=== PATIENT | female | born 1935 | race Caucasian/White ===

== ENCOUNTER 2020-06-20 23:03 | Inpatient (IN) ==
[2020-06-21] MEDS ORDERED: METOPROLOL TARTRATE 5 MG/5 ML VIAL IV STA (03:21)
[2020-06-21] MEDS ORDERED: GLUCAGON 1 MG VIAL IM PRN ×2 (03:21→11:21)
[2020-06-21] MEDS ORDERED: DEXTROSE 50% 25 GM/50 ML VIAL IV PRN ×2 (03:21→11:21)
[2020-06-21] MEDS ORDERED: ONDANSETRON 4 MG/2 ML VIAL IV PRN ×2 (03:21→12:07)
[2020-06-21] MEDS ORDERED: hydrALAZINE 20 MG/1 ML VIAL IV PRN (03:21)
[2020-06-21] MEDS ORDERED: ACETAMINOPHEN 325 MG TABLET PO PRN (03:21)
[2020-06-21] MEDS ORDERED: MORPHINE 4 MG/1 ML VIAL IV PRN ×2 (03:21→11:21)
[2020-06-21] MEDS: SODIUM CHLORIDE 0.9% 1,000 ML IV SCH ×2 (03:56→16:55)
[2020-06-21] MEDS ORDERED: DILTIAZEM 50 MG/10 ML VIAL IV STA (08:05)
[2020-06-21] MEDS ORDERED: DILTIAZEM 25 MG/5 ML VIAL IV ONE (08:06)
[2020-06-21 08:47] LABS: Basophils % 0.3 % (0.0-0.8); Eosinophils % 0.1 % (0.00-10.9); Hematocrit 23.8 VOL% (35.7-47.0); Hemoglobin 7.8 GM/DL (12.0-16.0); Immature Granulocytes % 0.6 %; Immature Granulocytes Absolute 0.06 #; Lymphocytes # 2.4 10*3/uL (1.4-4.0); Lymphocytes % 23.1 % (21.3-54.2); Mean Corpuscular HGB Conc 32.8 GM/DL (32-36); Mean Corpuscular Volume 97.5 FL (87-102); Mean Platelet Volume 9.4 FL (9.6-12.0); Monocytes % 13.8 % (1.7-12.7); Neutrophils % 62.1 % (38.7-73.9); Platelet Count 208 T/CUMM (130-400); Red Blood Count 2.44 MC/CUMM (3.8-5.5); Red Cell Distribution Width 13.2 % (9.3-17.3); White Blood Count 10.3 T/CUMM (4-12)
[2020-06-21 08:56] LABS: INR 1.1; PT Patient Result 11.6 SECS (9.8-11.9)
[2020-06-21 09:10] LABS: Albumin 3.3 G/DL (3.4-5.0); Bilirubin,Total 0.6 MG/DL (0.2-1.0); Calcium 8.8 MG/DL (8.5-10.1); Osmolality,Calculated 285.2 MOS/KG (273-304); Total Protein 6.4 G/DL (6.4-8.3)
[2020-06-21] MEDS ORDERED: SODIUM CHLORIDE 0.9% 1,000 ML IV PRN (09:18)
[2020-06-21] MEDS ORDERED: ceFAZolin 1,000 MG VIAL ONE (10:02)
[2020-06-21] MEDS ORDERED: ceFAZolin 2,000 MG in PREMIX 1 EACH IV ONE (11:00)
[2020-06-21] MEDS ORDERED: BISACODYL 10 MG SUPP RECTAL PRN (11:14)
[2020-06-21] MEDS ORDERED: PROMETHAZINE 25 MG/1 ML VIAL IM PRN (11:14)
[2020-06-21] MEDS ORDERED: LACTULOSE 20 GM/30 ML UDCUP PO PRN (11:14)
[2020-06-21] MEDS ORDERED: diphenhydrAMINE CAP 25 MG CAPSULE PO PRN (11:14)
[2020-06-21] MEDS ORDERED: MAGNESIUM HYDROXIDE SUSP 30 ML UDCUP PO PRN (11:14)
[2020-06-21] MEDS ORDERED: PHENYLEPHRINE 1 MG/10 ML SYRINGE IV ONE (11:37)
[2020-06-21] MEDS ORDERED: ACETAMINOPHEN 1,000 MG/100 ML VIAL IV ONE (11:37)
[2020-06-21] MEDS ORDERED: LIDOCAINE 2% 5 ML VIAL ONE (11:37)
[2020-06-21] MEDS ORDERED: PHENYLEPHRINE DRIP 20 MG/250 ML PREMIX IV ONE (11:37)
[2020-06-21] MEDS ORDERED: SEVOFLURANE 1 UNIT/15 MINUTE INH ONE (11:37)
[2020-06-21] MEDS ORDERED: ONDANSETRON 4 MG/2 ML VIAL ONE (11:37)
[2020-06-21] MEDS ORDERED: ETOMIDATE 40 MG/20 ML VIAL IV ONE (11:37)
[2020-06-21] MEDS ORDERED: GLYCOPYRROLATE 0.4 MG/2 ML VIAL ONE (11:37)
[2020-06-21] MEDS ORDERED: fentaNYL 100 MCG/2 ML VIAL ONE (11:37)
[2020-06-21] MEDS ORDERED: ROCURONIUM 100 MG/10 ML VIAL IV ONE (11:38)
[2020-06-21] MEDS ORDERED: SODIUM CHLORIDE 0.9% 2,000 ML IV ONE (11:38)
[2020-06-21] MEDS ORDERED: NEOSTIGMINE 10 MG/10 ML VIAL ONE (11:38)
[2020-06-21] MEDS ORDERED: MEPERIDINE 25 MG/1 ML VIAL ONE (12:04)
[2020-06-21] MEDS: MEPERIDINE 25 MG/1 ML VIAL IV PRN ×2 (12:05→13:55)
[2020-06-21] MEDS ORDERED: DILTIAZEM 50 MG/10 ML VIAL IV ONE (13:45)
[2020-06-21] MEDS: dilTIAZem INJ 125 MG in SODIUM CHLORIDE 0.9% 125 MG/100 ML BAG IV SCH (14:00)
[2020-06-21] MEDS ORDERED: SODIUM CHLORIDE 0.9% 500 ML IV ONE (14:05)
[2020-06-21] MEDS ORDERED: DIGOXIN 0.5 MG/2 ML AMP IV ONE (14:26)
[2020-06-21 15:20] LABS: Hematocrit 27.4 VOL% (35.7-47.0)
[2020-06-21] MEDS: METOPROLOL TARTRATE 25 MG TABLET PO SCH ×2 (16:34→21:10)
[2020-06-21] MEDS: INSULIN REGULAR 100 UNIT/ML SUBCUT SCH ×3 (16:34→21:10)
[2020-06-21] MEDS: FERROUS SULFATE 325 MG TABLET PO SCH (16:55)
[2020-06-21] MEDS: GABAPENTIN 300 MG CAPSULE PO SCH ×2 (16:55→21:11)
[2020-06-21] MEDS: ceFAZolin 1,000 MG in SYRINGE 1 EACH IV SCH (16:59)
[2020-06-21] MEDS: glipiZIDE 5 MG TABLET PO SCH (17:05)
[2020-06-21] MEDS: RANOLAZINE 500 MG TABLET PO SCH (21:10)
[2020-06-21] MEDS: APIXABAN 2.5 MG TABLET PO SCH (21:10)
[2020-06-21] MEDS: TICAGRELOR 90 MG TABLET PO SCH (21:11)
[2020-06-21] MEDS: ATORVASTATIN 40 MG TABLET PO SCH (21:11)
[2020-06-21] MEDS: DIPHENHYDRAMINE ACETAMINOPHEN PO SCH (21:37)
[2020-06-22] MEDS: ceFAZolin 1,000 MG in SYRINGE 1 EACH IV SCH ×2 (00:30→10:07)
[2020-06-22] MEDS: SODIUM CHLORIDE 0.9% 1,000 ML IV SCH ×3 (05:23→17:37)
[2020-06-22 06:04] LABS: Calcium 7.8 MG/DL (8.5-10.1); Osmolality,Calculated 286.4 MOS/KG (273-304)
[2020-06-22] MEDS ORDERED: MAGNESIUM SULF RIDER 2 GM in PREMIX 1 EACH IV ONE ×2 (06:26→09:05)
[2020-06-22] MEDS ORDERED: PANTOPRAZOLE 20 MG TABLET PO SCH (07:00)
[2020-06-22 07:40] LABS: Basophils % 0.2 % (0.0-0.8); Eosinophils % 0.1 % (0.00-10.9); Hematocrit 21.9 VOL% (35.7-47.0); Immature Granulocytes % 0.6 %; Immature Granulocytes Absolute 0.07 #; Mean Corpuscular HGB Conc 32.4 GM/DL (32-36); NRBC # 0.04 10*3/uL; Neutrophils % 70.1 % (38.7-73.9); Red Blood Count 2.38 MC/CUMM (3.8-5.5); Red Cell Distribution Width 21.6 % (9.3-17.3); White Blood Count 12.6 T/CUMM (4-12)
[2020-06-22 07:41] LABS: Hemoglobin 7.1 GM/DL (12.0-16.0); Platelet Count 161 T/CUMM (130-400)
[2020-06-22 07:51] LABS: Microcytosis 1+
[2020-06-22 07:52] LABS: Anisocytosis 1+; Ovalocytes Slight; Platelet Estimate Adequate
[2020-06-22] MEDS ORDERED: SODIUM CHLORIDE 0.9% 1,000 ML IV PRN (08:27)
[2020-06-22] MEDS ORDERED: ASPIRIN EC 81 MG TABLET PO SCH (09:00)
[2020-06-22] MEDS ORDERED: LOSARTAN 50 MG TABLET PO SCH (09:00)
[2020-06-22] MEDS: GABAPENTIN 300 MG CAPSULE PO SCH ×3 (09:53→21:58)
[2020-06-22] MEDS: RANOLAZINE 500 MG TABLET PO SCH ×2 (09:53→21:58)
[2020-06-22] MEDS: OXYBUTYNIN XL 10 MG TABLET PO SCH (09:53)
[2020-06-22] MEDS: glipiZIDE 5 MG TABLET PO SCH ×2 (09:53→17:34)
[2020-06-22] MEDS: MULTIVITAMIN (CENTRUM) TABLET PO SCH (09:53)
[2020-06-22] MEDS: METOPROLOL TARTRATE 25 MG TABLET PO SCH ×2 (09:54→21:58)
[2020-06-22] MEDS: MAGNESIUM OXIDE 400 MG TABLET PO SCH (09:54)
[2020-06-22] MEDS: CETIRIZINE 10 MG TABLET PO SCH (09:55)
[2020-06-22] MEDS: FERROUS SULFATE 325 MG TABLET PO SCH ×2 (09:55→17:34)
[2020-06-22] MEDS: INSULIN REGULAR 100 UNIT/ML SUBCUT SCH ×4 (09:57→21:58)
[2020-06-22] MEDS: ASPIRIN EC 81 MG TABLET PO SCH (10:06)
[2020-06-22] MEDS: APIXABAN 2.5 MG TABLET PO SCH (10:08)
[2020-06-22] MEDS: TICAGRELOR 90 MG TABLET PO SCH (10:08)
[2020-06-22] MEDS: BUMETANIDE 1 MG TABLET PO SCH (13:27)
[2020-06-22] MEDS: dilTIAZem INJ 125 MG in SODIUM CHLORIDE 0.9% 125 MG/100 ML BAG IV SCH (15:27)
[2020-06-22 18:54] LABS: Hematocrit 27.2 VOL% (35.7-47.0); Hemoglobin 9.1 GM/DL (12.0-16.0)
[2020-06-22] MEDS: ATORVASTATIN 40 MG TABLET PO SCH (21:58)
[2020-06-22] MEDS: DIPHENHYDRAMINE ACETAMINOPHEN PO SCH (22:02)
[2020-06-23 04:17] LABS: Basophils % 0.3 % (0.0-0.8); Eosinophils # 0.1 10*3/uL (0.0-0.87); Eosinophils % 0.8 % (0.00-10.9); Hematocrit 25.9 VOL% (35.7-47.0); Hemoglobin 8.7 GM/DL (12.0-16.0); Immature Granulocytes % 0.8 %; Immature Granulocytes Absolute 0.09 #; Lymphocytes # 1.5 10*3/uL (1.4-4.0); Lymphocytes % 13.4 % (21.3-54.2); Mean Corpuscular HGB Conc 33.6 GM/DL (32-36); Mean Platelet Volume 9.5 FL (9.6-12.0); Monocytes % 12.3 % (1.7-12.7); NRBC # 0.05 10*3/uL; Neutrophils % 72.4 % (38.7-73.9); Platelet Count 112 T/CUMM (130-400); Red Blood Count 2.91 MC/CUMM (3.8-5.5); Red Cell Distribution Width 17.8 % (9.3-17.3); White Blood Count 10.8 T/CUMM (4-12)
[2020-06-23 04:23] LABS: Osmolality,Calculated 284.1 MOS/KG (273-304)
[2020-06-23] MEDS: SODIUM CHLORIDE 0.9% 1,000 ML IV SCH (05:11)
[2020-06-23 07:15] LABS: % Iron Saturation 15.8 % (18-50); Ferritin 505.5 ng/ml (8-252)
[2020-06-23 08:11] LABS: Folate > 24.0 NG/ML (5.4-24.0); Vitamin B12 > 2000 PG/ML (211-911)
[2020-06-23] MEDS: OXYBUTYNIN XL 10 MG TABLET PO SCH (09:09)
[2020-06-23] MEDS: GABAPENTIN 300 MG CAPSULE PO SCH ×3 (09:09→21:15)
[2020-06-23] MEDS: MULTIVITAMIN (CENTRUM) TABLET PO SCH (09:09)
[2020-06-23] MEDS: MAGNESIUM OXIDE 400 MG TABLET PO SCH (09:09)
[2020-06-23] MEDS: RANOLAZINE 500 MG TABLET PO SCH ×2 (09:09→21:15)
[2020-06-23] MEDS: ASPIRIN EC 81 MG TABLET PO SCH (09:09)
[2020-06-23] MEDS: PANTOPRAZOLE 20 MG TABLET PO SCH (09:09)
[2020-06-23] MEDS: METOPROLOL TARTRATE 25 MG TABLET PO SCH ×2 (09:10→21:16)
[2020-06-23] MEDS: CETIRIZINE 10 MG TABLET PO SCH (09:10)
[2020-06-23] MEDS: FERROUS SULFATE 325 MG TABLET PO SCH ×2 (09:10→17:23)
[2020-06-23] MEDS: glipiZIDE 5 MG TABLET PO SCH ×2 (09:16→17:23)
[2020-06-23] MEDS: INSULIN REGULAR 100 UNIT/ML SUBCUT SCH ×4 (09:16→21:16)
[2020-06-23] MEDS ORDERED: IRON SUCROSE 300 MG in SODIUM CHLORIDE 0.9% 100 ML IV ONE (09:30)
[2020-06-23] MEDS: dilTIAZem INJ 125 MG in SODIUM CHLORIDE 0.9% 125 MG/100 ML BAG IV SCH (12:12)
[2020-06-23] MEDS: BUMETANIDE 1 MG TABLET PO SCH (13:02)
[2020-06-23 16:32] LABS: Hematocrit 24.8 VOL% (35.7-47.0); Hemoglobin 8.1 GM/DL (12.0-16.0)
[2020-06-23] MEDS: ATORVASTATIN 40 MG TABLET PO SCH (21:15)
[2020-06-23] MEDS: DIPHENHYDRAMINE ACETAMINOPHEN PO SCH (21:16)
[2020-06-24 06:05] LABS: Basophils % 0.3 % (0.0-0.8); Eosinophils # 0.1 10*3/uL (0.0-0.87); Eosinophils % 1.2 % (0.00-10.9); Hematocrit 23.1 VOL% (35.7-47.0); Hemoglobin 7.6 GM/DL (12.0-16.0); Immature Granulocytes % 0.9 %; Immature Granulocytes Absolute 0.09 #; Lymphocytes # 1.4 10*3/uL (1.4-4.0); Lymphocytes % 13.8 % (21.3-54.2); Mean Corpuscular HGB Conc 32.9 GM/DL (32-36); Mean Platelet Volume 9.9 FL (9.6-12.0); Monocytes % 12.4 % (1.7-12.7); NRBC # 0.04 10*3/uL; Neutrophils % 71.4 % (38.7-73.9); Platelet Count 137 T/CUMM (130-400); Red Blood Count 2.51 MC/CUMM (3.8-5.5); Red Cell Distribution Width 17.2 % (9.3-17.3); White Blood Count 10.4 T/CUMM (4-12)
[2020-06-24 06:30] LABS: Risk Ratio 2.21; VLDL CHOLESTEROL 23.8 MG/DL
[2020-06-24] MEDS ORDERED: SODIUM CHLORIDE 0.9% 1,000 ML IV PRN (06:36)
[2020-06-24] MEDS: INSULIN REGULAR 100 UNIT/ML SUBCUT SCH ×4 (08:10→22:54)
[2020-06-24] MEDS: GABAPENTIN 300 MG CAPSULE PO SCH ×3 (08:17→20:26)
[2020-06-24] MEDS: MAGNESIUM OXIDE 400 MG TABLET PO SCH (08:17)
[2020-06-24] MEDS: ASPIRIN EC 81 MG TABLET PO SCH (08:17)
[2020-06-24] MEDS: RANOLAZINE 500 MG TABLET PO SCH ×2 (08:18→20:26)
[2020-06-24] MEDS: MULTIVITAMIN (CENTRUM) TABLET PO SCH (08:18)
[2020-06-24] MEDS: FERROUS SULFATE 325 MG TABLET PO SCH ×2 (08:18→16:02)
[2020-06-24] MEDS: glipiZIDE 5 MG TABLET PO SCH ×2 (08:18→16:44)
[2020-06-24] MEDS: METOPROLOL TARTRATE 25 MG TABLET PO SCH ×2 (08:18→20:26)
[2020-06-24] MEDS: OXYBUTYNIN XL 10 MG TABLET PO SCH (08:18)
[2020-06-24] MEDS: CETIRIZINE 10 MG TABLET PO SCH (08:18)
[2020-06-24] MEDS: PANTOPRAZOLE 20 MG TABLET PO SCH (08:18)
[2020-06-24] MEDS ORDERED: IRON SUCROSE 300 MG in SODIUM CHLORIDE 0.9% 100 ML IV ONE (09:00)
[2020-06-24] MEDS: BUMETANIDE 1 MG TABLET PO SCH (12:07)
[2020-06-24] MEDS: dilTIAZem INJ 125 MG in SODIUM CHLORIDE 0.9% 125 MG/100 ML BAG IV SCH (12:44)
[2020-06-24] MEDS: ATORVASTATIN 40 MG TABLET PO SCH (20:26)
[2020-06-24] MEDS: DIPHENHYDRAMINE ACETAMINOPHEN PO SCH (22:55)
[2020-06-25 06:08] LABS: Basophils % 0.2 % (0.0-0.8); Eosinophils # 0.1 10*3/uL (0.0-0.87); Hemoglobin 8.9 GM/DL (12.0-16.0); Immature Granulocytes % 0.9 %; Immature Granulocytes Absolute 0.08 #; Lymphocytes % 10.7 % (21.3-54.2); Mean Corpuscular Volume 87.7 FL (87-102); Mean Platelet Volume 9.3 FL (9.6-12.0); NRBC # 0.03 10*3/uL; Neutrophils % 74.2 % (38.7-73.9); Platelet Count 133 T/CUMM (130-400); Red Blood Count 3.08 MC/CUMM (3.8-5.5); Red Cell Distribution Width 17.2 % (9.3-17.3); White Blood Count 9.2 T/CUMM (4-12)
[2020-06-25 06:30] LABS: Alanine Aminotransferase < 9 U/L (13-56); Albumin 2.2 G/DL (3.4-5.0); Alkaline Phosphatase 61 U/L (45-117); Aspartate Amino Transferase 41 U/L (0-37); Blood Urea Nitrogen 53 MG/DL (7-18); Calcium 8.5 MG/DL (8.5-10.1); Estimated Glom Filtration Rate 24 ML/MIN; Glucose 68 MG/DL (74-106); Osmolality,Calculated 277.4 MOS/KG (273-304); Total Protein 5.2 G/DL (6.4-8.3)
[2020-06-25] MEDS: GABAPENTIN 300 MG CAPSULE PO SCH ×3 (09:11→21:12)
[2020-06-25] MEDS: ASPIRIN EC 81 MG TABLET PO SCH (09:11)
[2020-06-25] MEDS ORDERED: MAGNESIUM HYDROXIDE SUSP 30 ML UDCUP PO ONE (09:12)
[2020-06-25] MEDS: PANTOPRAZOLE 20 MG TABLET PO SCH (09:18)
[2020-06-25] MEDS: MAGNESIUM OXIDE 400 MG TABLET PO SCH (09:18)
[2020-06-25] MEDS: INSULIN REGULAR 100 UNIT/ML SUBCUT SCH ×4 (09:18→21:40)
[2020-06-25] MEDS: RANOLAZINE 500 MG TABLET PO SCH ×2 (09:19→21:13)
[2020-06-25] MEDS: OXYBUTYNIN XL 10 MG TABLET PO SCH (09:19)
[2020-06-25] MEDS: glipiZIDE 5 MG TABLET PO SCH ×2 (09:19→16:04)
[2020-06-25] MEDS: METOPROLOL TARTRATE 25 MG TABLET PO SCH ×2 (09:19→21:13)
[2020-06-25] MEDS: FERROUS SULFATE 325 MG TABLET PO SCH ×2 (09:19→16:04)
[2020-06-25] MEDS: MULTIVITAMIN (CENTRUM) TABLET PO SCH (09:19)
[2020-06-25] MEDS: CETIRIZINE 10 MG TABLET PO SCH (09:19)
[2020-06-25] MEDS: POLYETHYLENE GLYCOL POWDER 17 GM PACK PO SCH (10:17)
[2020-06-25] MEDS: BUMETANIDE 1 MG TABLET PO SCH (11:02)
[2020-06-25] MEDS: dilTIAZem INJ 125 MG in SODIUM CHLORIDE 0.9% 125 MG/100 ML BAG IV SCH (15:33)
[2020-06-25] MEDS ORDERED: BISACODYL 5 MG TABLET PO SCH (21:00)
[2020-06-25] MEDS: DOCUSATE SODIUM 100 MG CAPSULE PO SCH (21:12)
[2020-06-25] MEDS: ATORVASTATIN 40 MG TABLET PO SCH (21:13)
[2020-06-25] MEDS: DIPHENHYDRAMINE ACETAMINOPHEN PO SCH (21:39)
[2020-06-26 06:36] LABS: Basophils % 0.3 % (0.0-0.8); Eosinophils # 0.1 10*3/uL (0.0-0.87); Eosinophils % 1.2 % (0.00-10.9); Hematocrit 24.7 VOL% (35.7-47.0); Hemoglobin 8.2 GM/DL (12.0-16.0); Immature Granulocytes % 1.2 %; Immature Granulocytes Absolute 0.12 #; Lymphocytes # 1.2 10*3/uL (1.4-4.0); Lymphocytes % 11.2 % (21.3-54.2); Mean Corpuscular HGB Conc 33.2 GM/DL (32-36); Mean Corpuscular Volume 88.8 FL (87-102); Mean Platelet Volume 9.3 FL (9.6-12.0); NRBC # 0.04 10*3/uL; Neutrophils % 74.1 % (38.7-73.9); Platelet Count 161 T/CUMM (130-400); Red Blood Count 2.78 MC/CUMM (3.8-5.5); Red Cell Distribution Width 17.1 % (9.3-17.3); White Blood Count 10.4 T/CUMM (4-12)
[2020-06-26] MEDS: INSULIN REGULAR 100 UNIT/ML SUBCUT SCH ×4 (07:56→22:13)
[2020-06-26 08:08] LABS: Albumin 2.2 G/DL (3.4-5.0); Calcium 8.6 MG/DL (8.5-10.1); Osmolality,Calculated 277.7 MOS/KG (273-304); Total Protein 5.4 G/DL (6.4-8.3)
[2020-06-26] MEDS: PANTOPRAZOLE 20 MG TABLET PO SCH (08:43)
[2020-06-26] MEDS: RANOLAZINE 500 MG TABLET PO SCH ×2 (08:43→20:17)
[2020-06-26] MEDS: OXYBUTYNIN XL 10 MG TABLET PO SCH (08:43)
[2020-06-26] MEDS: GABAPENTIN 300 MG CAPSULE PO SCH ×3 (08:43→20:17)
[2020-06-26] MEDS: glipiZIDE 5 MG TABLET PO SCH ×2 (08:44→16:02)
[2020-06-26] MEDS: MULTIVITAMIN (CENTRUM) TABLET PO SCH (08:44)
[2020-06-26] MEDS: METOPROLOL TARTRATE 25 MG TABLET PO SCH ×2 (08:44→20:17)
[2020-06-26] MEDS: FERROUS SULFATE 325 MG TABLET PO SCH ×2 (08:44→16:02)
[2020-06-26] MEDS: ASPIRIN EC 81 MG TABLET PO SCH (08:44)
[2020-06-26] MEDS: POLYETHYLENE GLYCOL POWDER 17 GM PACK PO SCH (08:45)
[2020-06-26] MEDS: MAGNESIUM OXIDE 400 MG TABLET PO SCH (08:45)
[2020-06-26] MEDS: CETIRIZINE 10 MG TABLET PO SCH (08:49)
[2020-06-26] MEDS: BUMETANIDE 1 MG TABLET PO SCH (12:25)
[2020-06-26] MEDS: dilTIAZem INJ 125 MG in SODIUM CHLORIDE 0.9% 125 MG/100 ML BAG IV SCH (15:19)
[2020-06-26] MEDS ORDERED: SODIUM CHLORIDE 0.9% 1,000 ML IV PRN (15:57)
[2020-06-26] MEDS: ATORVASTATIN 40 MG TABLET PO SCH (20:17)
[2020-06-26] MEDS: DOCUSATE SODIUM 100 MG CAPSULE PO SCH (20:17)
[2020-06-26] MEDS: DIPHENHYDRAMINE ACETAMINOPHEN PO SCH (22:12)
[2020-06-27 05:18] LABS: Basophils % 0.3 % (0.0-0.8); Eosinophils # 0.2 10*3/uL (0.0-0.87); Eosinophils % 1.9 % (0.00-10.9); Hematocrit 23.9 VOL% (35.7-47.0); Hemoglobin 7.7 GM/DL (12.0-16.0); Immature Granulocytes % 1.8 %; Immature Granulocytes Absolute 0.18 #; Lymphocytes # 1.1 10*3/uL (1.4-4.0); Lymphocytes % 10.6 % (21.3-54.2); Mean Corpuscular HGB Conc 32.2 GM/DL (32-36); Mean Corpuscular Volume 91.2 FL (87-102); Mean Platelet Volume 9.1 FL (9.6-12.0); Monocytes % 12.2 % (1.7-12.7); NRBC # 0.02 10*3/uL; Neutrophils % 73.2 % (38.7-73.9); Platelet Count 182 T/CUMM (130-400); Red Blood Count 2.62 MC/CUMM (3.8-5.5); Red Cell Distribution Width 17.2 % (9.3-17.3)
[2020-06-27 05:45] LABS: Albumin 2.1 G/DL (3.4-5.0); Bilirubin,Total 0.9 MG/DL (0.2-1.0); Calcium 8.5 MG/DL (8.5-10.1); Osmolality,Calculated 283.2 MOS/KG (273-304); Total Protein 5.4 G/DL (6.4-8.3)
[2020-06-27] MEDS ORDERED: CYANOCOBALAMIN 1000 MCG/1 ML VIAL IM SCH ×2 (09:00→11:00)
[2020-06-27] MEDS ORDERED: ERGOCALCIFEROL 50,000 UNIT CAPSULE PO SCH (09:00)
[2020-06-27] MEDS: GABAPENTIN 300 MG CAPSULE PO SCH (09:11)
[2020-06-27] MEDS: MAGNESIUM OXIDE 400 MG TABLET PO SCH (09:11)
[2020-06-27] MEDS: OXYBUTYNIN XL 10 MG TABLET PO SCH (09:11)
[2020-06-27] MEDS: RANOLAZINE 500 MG TABLET PO SCH (09:11)
[2020-06-27] MEDS: CETIRIZINE 10 MG TABLET PO SCH (09:12)
[2020-06-27] MEDS: METOPROLOL TARTRATE 25 MG TABLET PO SCH (09:12)
[2020-06-27] MEDS: MULTIVITAMIN (CENTRUM) TABLET PO SCH (09:12)
[2020-06-27] MEDS: glipiZIDE 5 MG TABLET PO SCH (09:12)
[2020-06-27] MEDS: FERROUS SULFATE 325 MG TABLET PO SCH (09:12)
[2020-06-27] MEDS: INSULIN REGULAR 100 UNIT/ML SUBCUT SCH ×2 (09:13→13:58)
[2020-06-27] MEDS: ASPIRIN EC 81 MG TABLET PO SCH (09:13)
[2020-06-27] MEDS: PANTOPRAZOLE 20 MG TABLET PO SCH (09:13)
[2020-06-27] MEDS: POLYETHYLENE GLYCOL POWDER 17 GM PACK PO SCH (09:13)
[2020-06-27 13:11] VITALS: BP 113/54
[2020-06-27] MEDS: BUMETANIDE 1 MG TABLET PO SCH (13:58)
== END 2020-06-27 14:14 | disposition home health service (06) | DRG 481 ==
LOC: N.ED 23:03 → N.EDINP 06-21 03:21 → SUATTDRO 06-21 03:21 → N.3E 06-21 09:45 → N.TELES 06-21 14:48
PROVIDERS: ADMIT Internal Medicine; ATTEND Internal Medicine